=== PATIENT | male | born 1960 | race Caucasian/White ===

== ENCOUNTER → 2017-06-28 | Outpatient (CLI) | payer BC, OTHER ==
[~2017-06-28] MED LIST: ALLEGRA60 MG; ATORVASTATIN CA20 MG PO; DEXILANT60 MG; DIATRIZOATE MEGL/DIATRIZOA SOD 120 ML BTL PO ONE; FLUOXETINE HCL10 MG PO; IOPAMIDOL 370 MG/ML 200 ML INFUS..BTL INJ ONE; LISINOPRIL2.5 MG PO; NORCO 7.5-3251 EACH PO; NUEDEXTA 20-101 EACH PO; PANTOPRAZOLE SO40 MG PO; PLAVIX75 MG PO; SODIUM CHLORIDE 0.9% 50ML 50 ML ONE; WELLBUTRIN XL300 MG PO; ZANTAC150 MG; ZETIA10 MG PO
[2017-06-28 17:45] LABS: BLOOD UREA NITROGEN 9 mg/dL (7-26); BUN/CREATININE RATIO 11 (6-25); CREATININE, SERUM 0.81 mg/dL (0.72-1.25); EST GLOMERULAR FILTRATION RATE > 60 ML/MIN (60-)
--- NOTE | 2017-06-28 18:46 | Diagnostic Imaging Report ---
PROCEDURE:CT ABDOMEN AND PELVIS WITH CONTRAST COMPARISON:CT abdomen 02/02/2010. INDICATIONS:DIVERTICULITIS, ABDOMINAL PAIN LEFT LOWER QUAD FOR A FEW DAYS TECHNIQUE: Multidetector CT scanning of the abdomen and pelvis was performed after the administration of 100 cc of nonionic contrast. Coronal and sagittal reformations were obtained. Routine protocol performed. DLP: 393.3 mGy-cm FINDINGS: Lung bases: Clear. The visualized portion of the mediastinum is normal. Liver: Decreased attenuation. Low attenuating lesion in segment 6 measures 12 mm with suggestion of focal peripheral nodular enhancement. On previous exam, is exhibited uniform enhancement. There are scattered low attenuating lesions throughout the parenchyma measuring up to 5 mm, too small to characterize. Several of these low attenuating lesions were present on previous exam. Biliary: The gallbladder is present and normal in appearance. No biliary ductal dilatation. Spleen: Normal in size and attenuation without mass. Pancreas: Normal enhancement. No mass or ductal dilatation. Adrenal Glands: No mass. Kidneys: Symmetric enhancement. A calculus in the lower pole of the left kidney measures 10 mm (previously, 5 mm). No hydronephrosis. No soft tissue mass in either kidney. Gastrointestinal: The stomach is well-distended with enteric contrast. There is enteric contrast throughout the small bowel without wall thickening or dilatation. There is no contrast in the large bowel. There are diverticula throughout the left colon. One diverticulum in the descending colon measures 2 cm with inspissated stool and adjacent peritoneal inflammation that extends into the left lower quadrant. No evidence of fluid collection. No inflammatory changes elsewhere in the large bowel. Appendix: Normal. Vasculature: Aorta normal in diameter with diffuse atherosclerotic calcifications. Peritoneum/Retroperitoneum: No free fluid. No lymphadenopathy. Bladder: Normal. No ureteral dilatation. Reproductive organs: Prostate gland contains several calcifications. The seminal vesicles are normal. Musculoskeletal: There are stable degenerative changes of the spine. A hemangioma is an L1. There no compression deformities. There are no lytic or blastic lesions. CONCLUSION: 1. Mild diverticulitis of the descending colon. No abscess formation. No bowel obstruction. Normal appendix. 2. Partially enhancing lesion in the right lobe of the liver is stable and suggestive of a hemangioma. Other subcentimeter low attenuating lesions are similar in suggestive of cysts. 3. Enlarging left intrarenal calculus. No obstructive uropathy. Dictated by: Corrine Wise M.D. on 06/28/2017 at 18:54 Electronically approved by: Corrine Wise M.D. on 06/28/2017 at 18:54
== END ==
LOC: CT 16:56
PROVIDERS: ATTEND Internal Medicine Gastroenterology
DX: K57.00 Diverticulitis of small intestine with perforation and abscess without bleeding (principal)
CPT/HCPCS: 36415; 74177; 82565; 84520; Q9963; Q9967

== ENCOUNTER → 2017-08-04 | Day surgery (SDC) | payer BC, OTHER ==
[~2017-08-04] MED LIST changes: -DIATRIZOATE MEGL/DIATRIZOA SOD 120 ML BTL PO ONE; +FENTANYL CITRATE/PF 100MCG/2 ML INJ ONE; -IOPAMIDOL 370 MG/ML 200 ML INFUS..BTL INJ ONE; +MIDAZOLAM HCL 5MG/ML 2ML VIAL ONE; +PROPOFOL IV EMULSION 10 MG/ML 50 ML VIAL ONE; -SODIUM CHLORIDE 0.9% 50ML 50 ML ONE
--- NOTE | 2017-08-04 14:10 | Operative Report ---
DATE OF PROCEDURE: August 04, 2017 REFERRING PHYSICIAN: Dr. Frandy Simpson. PROCEDURE PERFORMED: Colonoscopy with hot biopsy. INDICATIONS FOR COLONOSCOPY: Colorectal cancer screening, personal history of colon polyps, left-sided abdominal pain. MEDICATION: Patient was done under MAC. Please see anesthesiologist's note. PROCEDURE: With the patient in the left lateral decubitus position, the flexible fiberoptic Olympus colonoscope was inserted into the rectum with ease, and the scope was advanced all the way to the cecum. It was then withdrawn slowly. Mucosa overlying the cecum appeared to be within normal limits. Diverticular disease was scattered throughout the colon. The ascending grossly appeared to be within normal limits. The prominent fold was noted in the proximal transverse colon, and that was hot biopsied. The rest of the transverse and descending grossly appeared to be within normal limits other than for diverticular disease. A focal diverticulitis was noted in the sigmoid colon. The rectum appeared to be within normal limits. The scope was then retroflexed into the distal rectum and small internal hemorrhoids were noted, none of which was actively bleeding. The scope was then straightened out. It was subsequently withdrawn. Patient tolerated the procedure well. IMPRESSION: 1. Diverticulosis. 2. Prominent fold, proximal transverse colon, hot biopsied. 3. Focal diverticulitis, sigmoid colon. 4. Internal hemorrhoids, none actively bleeding. PLAN: Follow up histology. Initiate Flagyl 500 mg 1 p.o. q.6 hours x 10 days and Levaquin 500 mg 1 p.o. daily times 10 days. Timing of followup colonoscopy pending pathology report. Job#: [id number] EV cc:FRANDY SIMPSON MD
== END | disposition home or self-care (01) ==
LOC: ENDO 08:53
PROVIDERS: ATTEND Internal Medicine Gastroenterology
DX: K57.32 Diverticulitis of large intestine without perforation or abscess without bleeding (principal); K52.9 Noninfective gastroenteritis and colitis, unspecified; K64.8 Other hemorrhoids; I25.10 Atherosclerotic heart disease of native coronary artery without angina pectoris; I10 Essential (primary) hypertension; G62.9 Polyneuropathy, unspecified; Z95.5 Presence of coronary angioplasty implant and graft; Z86.73 Personal history of transient ischemic attack (TIA), and cerebral infarction without residual deficits
CPT/HCPCS: 45384; J2250